=== PATIENT | male | born 1965 | race African-American/Black ===

== ENCOUNTER → 2019-10-20 14:31 | Outpatient (REF) | payer OTHER, SELFPAY | LOC: ANHLAB 14:31 | PROVIDERS: PCP Family Medicine; Visit Provider Surgery Plastic and Reconstructive Surgery | DX: L91.0 Hypertrophic scar (principal) | CPT/HCPCS: 88305 ==

== ENCOUNTER → 2020-06-11 17:47 | Outpatient (REF) | payer OTHER, SELFPAY | LOC: ANHLAB 17:47 | PROVIDERS: PCP Family Medicine; Visit Provider Surgery Plastic and Reconstructive Surgery | DX: D48.5 Neoplasm of uncertain behavior of skin (principal) | CPT/HCPCS: 88305 ==